=== PATIENT | female | born 1995 | race Caucasian/White ===

== ENCOUNTER 2021-02-13 11:57 | Emergency (ER) | payer MEDICAID, SELFPAY ==
[2021-02-13 12:20] VITALS: BP 116/77; PULSE 85; RESP 18; TEMP 36.8; O2SAT 98
--- NOTE | 2021-02-13 12:30 | DI.RAD_ITS ---
Exam(s) XR HAND LT COMPLETE EXAM: XR HAND LT COMPLETE CLINICAL HISTORY: crush injury. TECHNIQUE: 2D digital imaging was performed. COMPARISON: No exams were available for comparison FINDINGS: There is no evidence of fracture or dislocation. No radiopaque foreign body. Bone density is normal . No incidental osseous lesions. IMPRESSION: No fracture. DATA REPOSITORY: RADIATION DOSE DELIVERED:
--- NOTE | 2021-02-13 12:33 | W.ED.GENAD ---
Discharge Plan Disposition Patient Disposition: HOME Condition: Good Discharge Details Clinical Impression: Crush injury of hand, Abrasion Primary Care Provider: Unknown,Unknown ED Provider: Ivon Anthony Home Meds and New Rx's Prescriptions: No Action No Known Home Meds RF: 0 Discharge Instructions Instructions: Crush Injury (ED) Additional Instructions: Encourage rest, ice, elevation. Tylenol and/or ibuprofen as needed for discomfort. Please continue with Jorge wrap to help with swelling. You may also continue with the da taping to help with discomfort and immobilize fingers. A referral for local primary care has been sent. Please monitor her abrasion for signs infection including redness, warmth, drainage, increased pain, fever/chills. If you develop new/worsening symptoms seek care urgently once again. Otherwise, please follow-up with your primary care in the next 1 to 2 weeks if symptoms do not sided. Discharge Data Discharge Date/Time-TO BE ENTERED AT DEPARTURE: 02/13/21 14:03 Medical Decision Making Patient is a pleasant 25 year old RHD female, new to the area, presenting for evaluation of her left hand after crush injury yesterday. 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 Reports crush to MCP joints, maximal at third and fourth digits. States that she has some tingling to web space On exam, patient appears nontoxic. She has swelling and ecchymosis over the 3 & 4 MCP. No palpable bony abnormality. She has 2+ distal pulses, intact capillary refill. Ligamentous exam is intact in all fingers, she does have discomfort with extension against resistance over the third and fourth digits. Sensation is intact. She has small abrasion over 4th digit, proximal dorsal side, no complications noted. Patient does not know tetanus, is in agreement to update this today. Patinet took tylenol, will augment with ibuprofen. Will obtain XR to evaluate for possible fx. XR reviewed by myself, no acute abnormality. Discussed with patient. ADvised crush injury with swelling and ecchymosis. Encouraged RICE. Encouraged tylenol and/or Ibuprofen. Will da tape fingers to help with pain. Will apply jorge to help with swelling. Patient new to the area. I have asked care management to help arrange for f/u with local PCP. Advised she f/u with PCP in 2 weeks if not completely improved. Return precautions discussed. All of her questions and concerns were addressed, she is in agreement with this plan. HPI General Mode of arrival: ambulatory. Date/Time Provider Initiated Documentation: 02/13/21 12:33. Limitations to Documentation: no limitations. Information obtained by: patient and RN notes reviewed. History of Present Illness 25 year old F presents to the emergency department with the chief complaint of left hand pain, described as moderate, with intensity rated at 6. Quality is described as aching, and is localized to the left and upper extremity. Patient reports no radiation. Patient started experiencing this day(s) (1) and it has been constant. Immobilization improves symptom(s), Movement worsens symptoms . Patient notes no other symptoms.. Patient did receive the following treatments prior to arrival, other (tylenol) Related Data Home Medications Medication Instructions Recorded Confirmed Unknown [No Known Home Meds] 02/13/21 02/13/21 Allergies Allergy/AdvReac Type Severity Reaction Status Date / Time amoxicillin Allergy Unverified 02/13/21 12:27 tramadol Allergy Unverified 02/13/21 12:27 General Stated Complaint: Orthopedic JESÚS: 4 Review of Systems Constitutional Constitutional: Reports as per HPI, Denies chills, Denies fever(s), Denies headache(s) and Denies weakness ENT Ears, Nose, Mouth, and Throat: Denies headache(s) Cardiovascular Cardiovascular: Reports as per HPI Respiratory Respiratory: Reports as per HPI and Denies cough Musculoskeletal Musculoskeletal: Reports as per HPI and Reports tingling (webspace between 3 & 4 digits) Integumentary/Breasts Skin/Breast: Reports as per HPI and Reports wounds (small break in skin dorsal left ring finger) Neurologic Neurologic: Reports as per HPI, Denies headache(s), Reports tingling (webspace between 3 & 4 digits), Denies paresthesias and Denies weakness [facility] Social History Smoking/Tobacco Use Status: Current every day Tobacco Type: e-cigarettes Smoking risk assessment performed?: Yes Alcohol Intake: never Drug use: Never Substance use type: does not use Do you feel safe at home: Yes Do you feel safe in your relationship?: Yes Exam Const General: cooperative, healthy appearing, comfortable, no acute distress, well developed and well groomed Nutritional Appearance: well nourished and overweight Orientation: alert and awake Resp Effort & Inspection: normal respiratory effort, able to speak in complete sentences and no respiratory distress Cardio Rate: regular rate Rhythm: regular rhythm Skin General skin exam: ecchymosis Wounds: wounds noted Neuro General: patient alert and patient awake Cognition: normal cognition Speech: speech normal Gait: normal gait Motor: muscle tone normal throughout Sensory Exam: no sensory deficits noted Extrem Hand/finger images: 1. 2. areas of ecchymosis. This area is also swollen. There is no palpable defect. 2+ distal pulses, intact capillary refill. Sensation intact. Small break in mega skin dorsal proximal ring finger. No deep wounds, no active bleeding. Psych Appearance: grossly normal and well kempt Mental Status: mental status grossly normal Speech and Movement: speech and movement normal Course Vital Signs Vital signs: Vital Signs Temperature 37.8 C H 02/13/21 12:20 Pulse 85 02/13/21 12:20 Respiratory Rate 18 02/13/21 12:20 Blood Pressure 116/77 02/13/21 12:20 Pulse Oximetry 98 02/13/21 12:20 Temperature 37.8 C H 02/13/21 12:20 Temperature Source Skin 02/13/21 12:20 Pulse 85 02/13/21 12:20 Respiratory Rate 18 02/13/21 12:20 Respiratory Effort Non-Labored 02/13/21 12:24 Blood Pressure 116/77 02/13/21 12:20 Blood Pressure Position Sitting 02/13/21 12:20 Pulse Oximetry 98 02/13/21 12:20 Pain Level 6 02/13/21 12:20
[2021-02-13] MEDS: Ibuprofen 600 MG TAB PO (12:44)
--- NOTE | 2021-02-13 14:20 | DI.VRAD_ITS ---
PROCEDURE INFORMATION: Exam: XR Left Hand Exam date and time: 02/13/2021 12:39 PM Age: 25 years old Clinical indication: Patient HX: Crush injury to left hand, palm of hand sore TECHNIQUE: Imaging protocol: XR Left hand. Views: 3 or more views. COMPARISON: No relevant prior studies available. FINDINGS: Bones/joints: Normal. Soft tissues: Normal. IMPRESSION: No acute findings. Dictated and Authenticated by: Gigi Loya MD. Ordering:CORY Del Valle MD
--- NOTE | 2021-02-13 15:21 | NUR.NOTE ---
referral to [facility] for pcp
== END 2021-02-13 14:03 | disposition home or self-care (01) ==
PROVIDERS: Emergency Provider Physician Assistant
DX: S67.22XA Crushing injury of left hand, initial encounter (principal); W20.8XXA Other cause of strike by thrown, projected or falling object, initial encounter
CPT/HCPCS: 90471; 99284; 73130; 99283

== ENCOUNTER 2021-05-16 19:49 | Emergency (ER) | payer MEDICAID, SELFPAY ==
[2021-05-16] VITALS (34 sets, daily range): BP systolic 104–143; BP diastolic 42–96; PULSE 69–88; RESP 14–29; TEMP 37; O2SAT 96–100
--- NOTE | 2021-05-16 19:45 | RT.EKG_ITS ---
APPROVED REPORT Exam: Resting ECG Reason for Exam: chest pain Patient Location: E HR:73 bpm ECG Measurements Heart Rate 73 AXIS DE 111 P 4 QRSd 89 QRS 60 QT 390 T 35 QTc 430 Conclusion Sinus rhythm...normal P axis, V-rate 60- 99
--- NOTE | 2021-05-16 20:00 | DI.RAD_ITS ---
Exam(s) XR CHEST 2V PA LATERAL EXAM: XR CHEST 2V PA LATERAL CLINICAL HISTORY: chest pain TECHNIQUE: 2D digital imaging was performed of the chest. Two images were obtained. PA and lateral views were obtained. COMPARISON: No exams were available for comparison FINDINGS: MEDIASTINUM: Normal. HEART: Normal. PULMONARY VASCULATURE: Normal. LUNGS: Clear. PLEURAL SPACE: No pleural effusion or pneumothorax. BONE:Within normal limits for the patient's age. OTHER FINDINGS:Normal. IMPRESSION: No acute pulmonary findings. DATA REPOSITORY: RADIATION DOSE DELIVERED:
--- NOTE | 2021-05-16 20:07 | W.ED.GENAD ---
Discharge Plan Disposition Patient Disposition: HOME Condition: Stable Discharge Details Clinical Impression: Chest pain Primary Care Provider: Unknown,Unknown ED Provider: Chelsie Maldonado Home Meds and New Rx's Prescriptions: No Action No Known Home Meds RF: 0 Discharge Instructions Instructions: Chest Pain (ED) Additional Instructions: Your ekg, blood work and xray did not show concerning findings at this time. As your chest wall is tender to palpation, your symptoms may be due musculoskeletal pain which can be treated with alternating Tylenol and Motrin as needed and directed. Follow up with your primary care provider within 1 week for reevaluation and for referral for outpatient stress test or upper endoscopy if your symptoms do not improve or worsen. If you feel more ill, have worsening pain or difficulty breathing return to the closest emergency department. Discharge Data Discharge Physician: Chelsie Maldonado Medical Decision Making <Zackery Gibbs MD - Last Filed: 05/16/21 21:46> 25 yo female with no chronic medical problems comes in with chest pain. She states she was at her girlfriend's house washing dishes when she had a stabbing pain in the left chest that lasted ten minutes and resolved. She denies any pain now but does feel anxious. She had a similar event in the summer and was seen at a hospital in [place] where she lives and states she had a negative workup. She states throughout the day she has felt fine, no fevers or dyspnea. Denies any radiation of her pain or dyspnea or diaphoresis. I suspect given brevity of her pain she had chest wall pain or esophageal spasm. She has a heart score of 1, will obtain troponin. No tearing back pain and normal vascular exam so doubt dissection and is wells low perc negative so doubt PE labs and xray on my read unremarkable, she remains stable and asymptomatic. Discussed with her and she is willing to wait to have a delta troponin and if this is negative she will likely be discharged and f/u with pcp. Discussed with her return precautions as well pt signed out to oncoming provider to follow up on delta troponin with plan to discharge if negative Differential Diagnosis Differential Diagnosis: chest wall pain, esophageal spasm, nstemi Imaging Data Radiologic Study: Attestation: I personally reviewed and interpreted this imaging study as follows: Imaging: X-Ray My impression: no acute findings Lab Data Lab results reviewed: Yes I reviewed the patient's lab results. ECG Data Attestation: I personally reviewed and interpreted this ECG (s) as follows: Prior ECG tracings: not available for review Interpretation: sinus rhythm, rate of 73, no acute st t wave ischemic findings <Chelsie Maldonado DO - Last Filed: 05/17/21 00:10> 2300 --please see Dr. Gibbs's note for initial presentation, exam and plan. Case endorsed to follow-up on repeat troponin and if negative, will plan for discharge to home. Repeat troponin negative. Patient remains chest pain-free. Her left chest wall is tender to palpation and suspect this may be musculoskeletal. She is visiting from [place] and is advised to follow-up with her PCP for reevaluation and for referral for outpatient stress test or endoscopy if her symptoms do not improve or worsen. Medical Records Medical records reviewed: Yes I reviewed the patient's medical records. Lab Data Lab results reviewed: Yes I reviewed the patient's lab results. Labs: Laboratory Tests Range/Units 05/16/21 05/16/21 05/16/21 20:24 20:24 23:20 WBC (4.4-10.8) 10^3/uL 13.17 H RBC (3.93-5.22) 10^6/uL 4.61 Hgb (11.2-15.7) g/dL 12.5 Hct (36.0-46.0) % 39.7 MCV (80-95) fL 86.1 MCH (27.0-33.0) pg 27.1 MCHC (32.0-36.0) % 31.5 L RDW (11.7-14.6) % 13.0 Plt Count (130-400) 10^3/uL 316 MPV (8.0-11.0) fL 10.0 Immature Gran % 0.2 Neutrophils % 58.5 Lymphocytes % 32.9 Monocytes % 6.6 Eosinophils % 1.3 Basophils % 0.5 Nucleated RBC % % 0 Absolute Neutrophils (1.2-6.7) 10^3/uL 7.70 H Absolute Lymphocytes (1.2-3.4) 10^3/uL 4.33 H Absolute Monocytes (0.1-0.8) 10^3/uL 0.87 H Absolute Eosinophils (0.0-0.7) 10^3/uL 0.17 Absolute Basophils (0.0-0.2) 10^3/uL 0.07 Sodium (136-145) mmol/L 141 Potassium (3.5-5.1) mmol/L 4.3 Chloride (98-107) mmol/L 105 Carbon Dioxide (21.0-32.0) mmol/L 29.0 Anion Gap (3-11) mmol/L 7.0 BUN (7-18) mg/dL 13 Creatinine (0.55-1.02) mg/dL 0.9 Estimated GFR/1.73 m2 (mL/min/1.73m2) >= 60.00 Glucose (74-106) mg/dL 88 Calcium (8.5-10.1) mg/dL 9.6 Total Bilirubin (0.2-1.0) mg/dL 0.1 L AST (15-37) U/L 10 L ALT (14-59) U/L 25 Alkaline Phosphatase (46-116) U/L 68 Troponin I (<0.06) ng/mL < 0.05 < 0.05 Total Protein (6.4-8.2) g/dL 7.2 Albumin (3.4-5.0) g/dL 3.5 HPI <Zackery Gibbs MD - Last Filed: 05/16/21 21:46> General Mode of arrival: ambulatory. Date/Time Provider Initiated Documentation: 05/16/21 19:55. Limitations to Documentation: no limitations. Information obtained by: patient. History of Present Illness 25 year old F presents to the emergency department with the chief complaint of chest pain, described as moderate, Quality is described as aching, and is localized to the chest. Patient reports no radiation. Patient started experiencing this day(s) (1) and it has been constant. No relieving factors improve symptom(s), No exacerbating factors reported . Patient did receive the following treatments prior to arrival, none Related Data Home Medications Medication Instructions Recorded Confirmed Unknown [No Known Home Meds] 02/13/21 05/16/21 Allergies Allergy/AdvReac Type Severity Reaction Status Date / Time amoxicillin Allergy Unverified 05/16/21 20:08 tramadol Allergy Unverified 05/16/21 20:08 General Stated Complaint: Chest Pain JESÚS: 3 Review of Systems <Zackery Gibbs MD - Last Filed: 05/16/21 21:46> All systems reviewed & are unremarkable except as noted in HPI and below Constitutional Constitutional: Denies chills, Denies fever(s) and Denies weakness Cardiovascular Cardiovascular: Denies dyspnea Respiratory Respiratory: Denies cough and Denies dyspnea Gastrointestinal Gastrointestinal: Denies abdominal pain, Denies nausea and Denies vomiting Musculoskeletal Musculoskeletal: Denies joint swelling Integumentary/Breasts Skin/Breast: Denies rash Neurologic Neurologic: Denies weakness [facility] <Zackery Gibbs MD - Last Filed: 05/16/21 21:46> Social History Smoking/Tobacco Use Status: Current every day Tobacco Type: e-cigarettes Smoking risk assessment performed?: Yes Alcohol Intake: never Drug use: Never Substance use type: does not use Do you feel safe at home: Yes Do you feel safe in your relationship?: Yes Exam <Zackery Gibbs MD - Last Filed: 05/16/21 21:46> Const General: no acute distress Orientation: alert HENDC Head: normal to inspection Ears: external ears normal General nose exam: external nose normal Mouth: moist mucous membranes Eyes General: appearance normal, both eyes and all related structures Neck Neck: normal visual inspection Chest Chest: normal inspection of the chest Resp Effort & Inspection: normal respiratory effort and able to speak in complete sentences Cardio Rate: regular rate GI Palpation: soft and nontender Skin General skin exam: no rashes or lesions noted Neuro General: patient alert and patient oriented x3 Extrem General: normal to inspection Psych Mental Status: mental status grossly normal Course <Zackery Gibbs MD - Last Filed: 05/16/21 21:46> Vital Signs Vital signs: Vital Signs Temperature 37.0 C 05/16/21 19:52 Pulse 81 05/16/21 19:52 Respiratory Rate 16 05/16/21 19:52 Blood Pressure 143/96 H 05/16/21 19:52 Pulse Oximetry 100 05/16/21 19:52 Temperature 37.0 C 05/16/21 19:52 Temperature Source Temporal Artery Scan 05/16/21 19:52 Pulse 81 05/16/21 19:52 Respiratory Rate 16 05/16/21 19:52 Respiratory Effort Non-Labored 05/16/21 19:55 Blood Pressure 143/96 H 05/16/21 19:52 Blood Pressure Position Sitting 05/16/21 19:52 Pulse Oximetry 100 10/18/21 19:52 Oxygen Delivery Method Room Air 05/16/21 19:52 Oxygen Flow Rate 0 05/16/21 19:52 Pain Level 0 05/16/21 19:52 Comment 05/16/21 19:52 Sign Out <Zackery Gibbs MD - Last Filed: 05/16/21 21:46> Sign Out Data: Sign Out Comment: chest pain that resolved, pending delta troponin and if this is negative plan on d/c and follow up with pcp Last updated by Zackery Gibbs MD at 05/16/21 21:47
[2021-05-16 20:32] LABS: Abs Immature Grans 0.03 10^3/uL (0.0-0.06); Absolute Eosinophil Count 0.17 10^3/uL (0.0-0.7); Absolute Lymphocyte Count 4.33 10^3/uL (1.2-3.4); Absolute Monocyte Count 0.87 10^3/uL (0.1-0.8); Basophils % 0.5; Eosinophils % 1.3; HCT 39.7 % (36.0-46.0); HGB 12.5 g/dL (11.2-15.7); Immature Grans % 0.2; Lymphocytes % 32.9; MCH 27.1 pg (27.0-33.0); MCHC 31.5 % (32.0-36.0); MCV 86.1 fL (80-95); Monocytes % 6.6; Neutrophils % 58.5; Nucleated RBC 0 %; Platelet Count 316 10^3/uL (130-400); RBC 4.61 10^6/uL (3.93-5.22); RDW-SD 40.4 fL; WBC 13.17 10^3/uL (4.4-10.8)
[2021-05-16 20:33] LABS: Absolute Basophil Count 0.07 10^3/uL (0.0-0.2)
[2021-05-16 21:12] LABS: ALT 25 U/L (14-59); AST 10 U/L (15-37); Albumin 3.5 g/dL (3.4-5.0); Alkaline Phosphatase 68 U/L (46-116); BUN 13 mg/dL (7-18); Bilirubin, Total 0.1 mg/dL (0.2-1.0); CREATININE 0.9 mg/dL (0.55-1.02); Calcium 9.6 mg/dL (8.5-10.1); Chloride 105 mmol/L (98-107); Glucose 88 mg/dL (74-106); Potassium 4.3 mmol/L (3.5-5.1); Sodium 141 mmol/L (136-145); Total Protein 7.2 g/dL (6.4-8.2)
[2021-05-16 21:17] LABS: Troponin I < 0.05 ng/mL (<0.06)
--- NOTE | 2021-05-16 21:52 | DI.VRAD_ITS ---
PROCEDURE INFORMATION: Exam: XR Chest Exam date and time: 05/16/2021 8:12 PM Age: 25 years old Clinical indication: Other: Cp; Patient HX: Chest pain TECHNIQUE: Imaging protocol: XR of the chest. Views: 2 views. Total images: 2 COMPARISON: No relevant prior studies available. FINDINGS: Lungs: Unremarkable. No consolidation. Pleural spaces: Unremarkable. No pleural effusion. No pneumothorax. Heart/Mediastinum: Unremarkable. No cardiomegaly. Bones/joints: Unremarkable. IMPRESSION: No acute findings. Dictated and Authenticated by: Maureen Garcia MD. Ordering:MAXIMINO Vizcarra MD
--- NOTE | 2021-05-16 23:05 | NUR.NOTE ---
Nursing Note: Patient given a turkey sandwich and marjorie tootie.
[2021-05-16 23:47] LABS: Troponin I < 0.05 ng/mL (<0.06)
[2021-05-17] VITALS: PULSE 89; RESP 23; O2SAT 100
== END 2021-05-17 00:12 | disposition home or self-care (01) ==
PROVIDERS: Emergency Medicine; Emergency Provider Physician Assistant
DX: R07.9 Chest pain, unspecified (principal)
CPT/HCPCS: 36415; 80053; 93005; 99284; 71046; 84484; 85025; 93010